=== PATIENT | female | born 1990 | race African-American/Black ===

== ENCOUNTER 2016-05-21 17:40 | Emergency (ER) | payer MEDICAID ==
[2016-05-21 18:26] LABS: BASOPHILS 0.3 % (0.0-2.0); EOSINOPHILS 3.4 % (0-7); HEMATOCRIT 37.1 % (36.0-48.0); HEMOGLOBIN 11.2 g/dL (12-16); IMMATURE GRANULOCYTES 0.3 % (0-5); LYMPHOCYTES 25.7 % (15-50); MCH 26.3 pg (26.0-34.0); MCHC 30.2 g/dL (31.0-37.0); MCV 87.1 fL (80.0-100.0); MEAN PLATELET VOLUME 10.7 fL (7.4-10.4); MONOCYTES 5.4 % (2-11); NEUTROPHILS 64.9 % (40-80); PLATELET COUNT 298 10x3/uL (130-400); RBC 4.26 10x6/uL (4.00-5.40); RDW 15.6 % (11.5-14.5); WBC 7.6 10x3/uL (4.8-10.8)
[2016-05-21 18:57] LABS: ALBUMIN 3.1 g/dL (3.4-5.0); ALKALINE PHOSPHATASE 95 U/L (46-116); ALT (SGPT) 25 U/L (10-68); BILIRUBIN - TOTAL 0.57 mg/dL (0.2-1.3); CALC OSMOLALITY 281 mosm/kg (275-300); CALCIUM 8.9 mg/dL (8.5-10.1); CARBON DIOXIDE 28.7 mmol/L (21.0-32.0); CHLORIDE - SERUM 106 mmol/L (98-107); CREATININE - SERUM 0.8 mg/dL (0.6-1.3); GLUCOSE 116 mg/dL (74-106); SODIUM 142 mmol/L (136-145); UREA NITROGEN 7 mg/dL (7-18); eGFR NON AFRICAN AMERICAN > 90 mL/min (90-120)
== END 2016-05-22 00:38 | disposition home or self-care (01) ==
LOC: D.ER 17:40
PROVIDERS: Emergency Medicine
DX: S16.1XXA Strain of muscle, fascia and tendon at neck level, initial encounter (principal); V49.9XXA Car occupant (driver) (passenger) injured in unspecified traffic accident, initial encounter; Y93.89 Activity, other specified; Y92.410 Unspecified street and highway as the place of occurrence of the external cause; S00.83XA Contusion of other part of head, initial encounter; J45.909 Unspecified asthma, uncomplicated; K21.9 Gastro-esophageal reflux disease without esophagitis

== ENCOUNTER 2016-06-23 17:04 | Emergency (ER) | payer MEDICAID | END 2016-06-23 18:31 | disposition home or self-care (01) | LOC: D.ER 17:04 | DX: J06.9 Acute upper respiratory infection, unspecified (principal); J40 Bronchitis, not specified as acute or chronic; J45.909 Unspecified asthma, uncomplicated; K21.9 Gastro-esophageal reflux disease without esophagitis ==

== ENCOUNTER 2018-08-29 12:38 | Emergency (ER) | payer SELFPAY ==
[~2018-08-29] VITALS: Ht 172.7 cm; Wt 218.2 kg
[2018-08-29 12:45] VITALS: Ht 172.7 cm; Wt 218.2 kg
[2018-08-29 14:07] LABS: ALKALINE PHOSPHATASE 86 U/L (46-116); ALT (SGPT) 26 U/L (10-68); CALC OSMOLALITY 276 mosm/kg (275-300); CALCIUM 8.3 mg/dL (8.5-10.1); CARBON DIOXIDE 28.6 mmol/L (21.0-32.0); CHLORIDE - SERUM 102 mmol/L (98-107); CREATININE - SERUM 0.9 mg/dL (0.6-1.3); GLUCOSE 108 mg/dL (74-106); POTASSIUM - SERUM 3.5 mmol/L (3.5-5.1); PROTEIN - SERUM 8.6 g/dL (6.4-8.2); SODIUM 139 mmol/L (136-145); UREA NITROGEN 7 mg/dL (7-18); eGFR NON AFRICAN AMERICAN 78 mL/min (90-120)
[2018-08-29 14:13] LABS: HEMATOCRIT 34.4 % (36.0-48.0); HEMOGLOBIN 10.7 g/dL (12-16); LYMPHOCYTES 37.1 % (15-50); MCH 26.2 pg (26.0-34.0); MCHC 31.1 g/dL (31.0-37.0); MCV 84.1 fL (80.0-100.0); MEAN PLATELET VOLUME 9.5 fL (7.4-10.4); NEUTROPHILS 57.8 % (40-80); RBC 4.09 10x6/uL (4.00-5.40); RDW 17.1 % (11.5-14.5); WBC 3.7 10x3/uL (4.8-10.8)
[2018-08-29 14:16] LABS: PLATELET COUNT 228 10x3/uL (130-400)
[2018-08-29] MEDS ORDERED: KEFLEX500 MG PO (15:24)
[2018-08-29] MEDS ORDERED: BACTRIM 400-801 TAB PO (15:24)
[2018-08-29 15:32] VITALS: BP 130/76
[2018-08-29 15:40] LABS: ERYTHROCYTE SEDIMENTATION RATE 73 mm/hr (0-20)
== END 2018-08-29 15:34 | disposition home or self-care (01) ==
LOC: D.ER 12:38
PROVIDERS: Family Medicine
DX: L03.116 Cellulitis of left lower limb (principal); L03.115 Cellulitis of right lower limb

== ENCOUNTER 2019-11-28 08:46 | Emergency (ER) | payer SELFPAY ==
[~2019-11-28] VITALS: Ht 172.7 cm; Wt 245.0 kg
[~2019-11-28 08:46] MED LIST: BACTRIM 400-801 TAB PO; KEFLEX500 MG PO
[2019-11-28 08:49] VITALS: Ht 172.7 cm; Wt 245.0 kg
[2019-11-28 09:40] LABS: BASOPHILS 0.4 % (0-2); EOSINOPHILS 4.6 % (0-7); HEMATOCRIT 33.3 % (36.0-48.0); HEMOGLOBIN 10.1 g/dL (12-16); LYMPHOCYTES 31.9 % (15-50); MCH 25.9 pg (26.0-34.0); MCHC 30.3 g/dL (31.0-37.0); MCV 85.4 fL (80.0-100.0); MEAN PLATELET VOLUME 9.5 fL (7.4-10.4); MONOCYTES 5.4 % (2-11); NEUTROPHILS 57.7 % (40-80); PLATELET COUNT 272 10x3/uL (130-400); RDW 17.2 % (11.5-14.5); WBC 5.2 10x3/uL (4.8-10.8)
[2019-11-28 09:50] LABS: INR 1.05 (0.85-1.17); PROTIME 13.6 SECONDS (11.6-15.0)
[2019-11-28 09:52] LABS: CALC OSMOLALITY 277 mosm/kg (275-300); CALCIUM 8.4 mg/dL (8.5-10.1); CARBON DIOXIDE 33.1 mmol/L (21.0-32.0); CHLORIDE - SERUM 105 mmol/L (98-107); CREATININE - SERUM 0.7 mg/dL (0.6-1.3); GLUCOSE 94 mg/dL (74-106); POTASSIUM - SERUM 3.7 mmol/L (3.5-5.1); SODIUM 140 mmol/L (136-145); UREA NITROGEN 9 mg/dL (7-18); eGFR NON AFRICAN AMERICAN > 90 mL/min (90-120)
[2019-11-28 10:09] LABS: ALKALINE PHOSPHATASE 74 U/L (30-120); ALT (SGPT) 16 U/L (10-68); BILIRUBIN - TOTAL 0.66 mg/dL (0.2-1.3); CKMB 0.3 U/L (0.0-3.6); CREATINE KINASE 84 UL (21-215); PRO BNP 50 pg/mL (0-125); PROTEIN - SERUM 7.6 g/dL (6.4-8.2); TROPONIN-I < 0.017 ng/mL (0.000-0.060)
[2019-11-28] MEDS ORDERED: PREDNISONE20 MG PO (10:56)
[2019-11-28] MEDS ORDERED: ZYRTEC10 MG PO (10:56)
[2019-11-28] MEDS ORDERED: ALBUTEROL SULF8.5 GM INH (10:56)
[2019-11-28 11:34] VITALS: BP 145/88
== END 2019-11-28 11:34 | disposition home or self-care (01) ==
LOC: D.ER 08:46
PROVIDERS: Family Medicine
DX: J45.901 Unspecified asthma with (acute) exacerbation (principal)